=== PATIENT | female | born 1955 | race Caucasian/White ===

== ENCOUNTER 2018-05-04 14:54 | Emergency (ER) | payer MEDICARE ==
--- NOTE | 2018-05-04 15:50 | RAD ---
3 VIEWS LEFT WRIST: Date: 05/04/18 COMPARISON: None. HISTORY: Left wrist pain after fall yesterday. FINDINGS: Three views of the left wrist show a minimally displaced fracture of the distal radial metaphysis. Montiel rrounding soft tissue swelling is seen. IMPRESSION: Distal radius fracture. POS: OFF
--- NOTE | 2018-05-04 15:55 | RAD ---
LEFT FOREARM 2 VIEWS: Date: 05/04/18 HISTORY: 63-year-old female with left forearm pain following a fall yesterday. FINDINGS: There are essentially nondisplaced transverse fractures of the distal radial and ulnar metadiaphysis. There is bony demineralization. Arthrosis changes are noted of the wrist. IMPRESSION: Essentially nondisplaced transverse fractures of distal radial and ulnar metadiaphysis. Bony deminera lization. Degenerative and osteoarthrosis changes. POS: [place]
--- NOTE | 2018-05-04 16:12 | CT ---
CT OF THE BRAIN WITHOUT CONTRAST: 05/04/18 COMPARISON: None. HISTORY: Fall yesterday on her left side. Left leg weakness. TECHNIQUE: Multiple contiguous axial images were obtained in a CT of the brain without contrast. 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 There is no evidence of hydrocephalus, intracranial hemorrhage, or extra-axial fluid collec tion. The calvarium and overlying soft tissues are unremarkable. The visualized paranasal sinuses and masto id air cells are well aerated. IMPRESSION: No evidence of acute intracranial abnormality. POS: OFF
[2018-05-04] MEDS ORDERED: Bacitracin Zinc 1 Packet ONE (16:36)
--- NOTE | 2018-05-04 16:37 | CT ---
CT CERVICAL SPINE WITH CORONAL AND SAGITTAL REFORMATIONS 05/04/18 HISTORY: Fall. Left sided weakness. FINDINGS/IMPRESSION: Multilevel degenerative changes are present in the cervical spine. There is grade I anterolisthesis o f C6 over C7 vertebral bodies likely due to degenerative changes. No acute fracture is identified. No facet malalignment is seen. POS: [facility]
[2018-05-04] MEDS ORDERED: Adacel (T-DAP) 0.5 ML VIAL ONE (16:38)
== END 2018-05-04 17:55 | disposition home or self-care (01) ==
LOC: NAV ERS 14:54
DX: S52.502A Unspecified fracture of the lower end of left radius, initial encounter for closed fracture (principal); F17.210 Nicotine dependence, cigarettes, uncomplicated; Z79.899 Other long term (current) drug therapy; Z79.82 Long term (current) use of aspirin; Z86.73 Personal history of transient ischemic attack (TIA), and cerebral infarction without residual deficits; W19.XXXA Unspecified fall, initial encounter
CPT/HCPCS: 29125; 70450; 72125; 90471; 90715